=== PATIENT | female | born 1990 | race American Indian/Alaskan Native ===

== ENCOUNTER 2017-02-24 04:50 | Emergency (ER) | payer OTHER ==
[2017-02-24 06:04] LABS: Basophils % (Auto) 0.5 % (0.0-1.8); Eosinophils % (Auto) 0.6 % (0.0-4.3); Hematocrit 38.4 % (30.3-42.9); Hemoglobin 12.7 gm/dl (10.1-14.3); Mean Corpuscular HGB Conc 33 % (30-34); Mean Corpuscular Hemoglobin 28 pg (28-32); Mean Corpuscular Volume 86 fl (79-97); Platelet Count 306 K/mm3 (140-440); Red Blood Count 4.47 M/mm3 (3.65-5.03); Red Cell Distribution Width 13.3 % (13.2-15.2)
[2017-02-24 06:22] LABS: Alanine Aminotransferase 14 units/L (7-56); Albumin 3.8 g/dL (3.9-5); Albumin/Globulin Ratio 0.9 %; Alkaline Phosphatase 66 units/L (35-129); Anion Gap 16 mmol/L; BUN/Creatinine Ratio 16; Blood Urea Nitrogen 11 mg/dL (7-17); Calcium 9.1 mg/dL (8.4-10.2); Carbon Dioxide 26 mmol/L (22-30); Chloride 101.3 mmol/L (98-107); Glucose 91 mg/dL (65-100); Lipase 17 units/L (13-60); Potassium 3.8 mmol/L (3.6-5.0); Sodium 139 mmol/L (137-145); Total Protein 8.1 g/dL (6.3-8.2)
--- NOTE | 2017-02-24 10:39 | Emergency Department Report ---
Chief Complaint: Nausea/Vomiting/Diarrhea Stated Complaint: NAUSEA/VOMIATING Time Seen by Provider: 02/24/17 10:34 - HPI History of Present Illness: PT states she has been vomiting x 3 weeks. PT states she thinks this could be related to her hiatal hernia. PT states her job made her come to the ED for evaluation. PT states she was at work and she collapsed on the floor. PT denies loc PT states she was seen in another ED and dx with gastritis and she followed up with GI. PT had EGD and was dx with hernia. PT was given RX for Zofran but no improvement. - ROS Review of Systems: + epigastric pain + n/v - diarrhea - Exam Vital Signs: Vital Signs 02/24/17 04:57 Temperature 98.1 F Pulse Rate 76 Respiratory 18 Rate Blood Pressure 120/75 O2 Sat by Pulse 99 Oximetry Physical Exam: obese female no acute distress abd soft, LUQ mildy ttp MSE screening note: Focused history and physical exam performed. Due to findings the following was ordered: available labs reviewed ED Medical Decision Making - Lab Data Result diagrams: 02/24/17 05:34 02/24/17 05:34 ED Disposition for MSE Condition: Stable Referrals: PRIMARY CARE, [Primary Care Provider] - 3-5 Days
[2017-02-24] MEDS ORDERED: ZOFRAN IV ONE (11:20)
[2017-02-24] MEDS ORDERED: NACL 0.9% 1000 ML 1,000 ML IV ONE (11:20)
--- NOTE | 2017-02-24 11:22 | Emergency Department Report ---
HPI - General Chief Complaint: Nausea/Vomiting/Diarrhea Time Seen by Provider: 02/24/17 10:34 - HPI HPI: This is a 27 year-old female presents to the emergency department with a complaint of chronic nausea and vomiting. Today alone the patient says that she has vomited 3 times and still continues to be nauseated. She denies any significant abdominal pain. She came into the emergency department today because she was at work and got very dizzy and fell to the ground but denies losing consciousness before or after her fall. She denies any headache, neck pain or any other concern for bodily injury. The patient has been dealing with this nausea and vomiting for the past 2 weeks and even had a endoscopy on Thursday with her [employer]. The patient says she was told that she has a hiatal hernia, GERD and a biopsy was done and the results are not back yet regarding those results. She has been on Zofran without much relief. No fever, chest pain, shortness of breath, vaginal bleeding or discharge, dysuria. No recent travel or sick contacts at home. ED Past Medical Hx - Past Medical History Previous Medical History?: Yes Additional medical history: bronchitis,HERNIA. POS - Surgical History Past Surgical History?: Yes Hx Cholecystectomy: Yes - Social History Smoking Status: Never Smoker Substance Use Type: None - Medications Home Medications: Home Medications Medication Instructions Recorded Confirmed Last Taken Type Naproxen Sodium (Nf) [Anaprox DS] 550 mg PO BID PRN #20 tablet 08/29/13 Unknown Rx Ibuprofen [Motrin] 800 mg PO Q8H PRN #40 tablet 03/17/14 Unknown Rx metroNIDAZOLE [Flagyl] 500 mg PO BID #20 tablet 03/17/14 Unknown Rx Metoclopramide [Reglan] 10 mg PO TID PRN #14 tab 02/24/17 Unknown Rx Nitrofurantoin [place]/M-Cryst 100 mg PO Q12HR #14 capsule 02/24/17 Unknown Rx [Macrobid CAP] ED Review of Systems ROS: Stated complaint: NAUSEA/VOMIATING Other details as noted in HPI Comment: All other systems reviewed and negative Constitutional: denies: chills, fever Eyes: denies: eye pain, eye discharge, vision change ENT: denies: ear pain, throat pain Respiratory: denies: cough, shortness of breath, wheezing Cardiovascular: denies: chest pain, palpitations Gastrointestinal: nausea, vomiting Genitourinary: denies: urgency, dysuria, discharge Musculoskeletal: denies: back pain, joint swelling, arthralgia Skin: denies: rash, lesions Neurological: denies: headache, numbness Physical Exam - Physical Exam Vital Signs: Vital Signs 02/24/17 04:57 Temperature 98.1 F Pulse Rate 76 Respiratory 18 Rate Blood Pressure 120/75 O2 Sat by Pulse 99 Oximetry Physical Exam: GENERAL: The patient is well-developed well-nourished. HENT: Normocephalic. Atraumatic. Patient has moist mucous membranes. EYES: Extraocular motions are intact. Pupils equal reactive to light bilaterally. NECK: Supple. Trachea is midline. CHEST/LUNGS: Clear to auscultation. There is no respiratory distress noted. HEART/CARDIOVASCULAR: Regular. There is no tachycardia. There is no gallop rub or murmur. ABDOMEN: Abdomen is soft, nontender. Patient has normal bowel sounds. There is no abdominal distention. Morbidly obese habitus. SKIN: Skin is warm and dry. NEURO: The patient is awake, alert, and oriented. The patient is cooperative. The patient has no focal neurologic deficits. The patient has normal speech. MUSCULOSKELETAL: There is no tenderness or deformity. There is no limitation range of motion. There is no evidence of acute injury. ED Course Vital Signs 02/24/17 04:57 Temperature 98.1 F Pulse Rate 76 Respiratory 18 Rate Blood Pressure 120/75 O2 Sat by Pulse 99 Oximetry ED Medical Decision Making - Lab Data Result diagrams: 02/24/17 05:34 02/24/17 05:34 - Medical Decision Making 27-year-old female presents with some chronic nausea and vomiting over the past few weeks. She has already had a gastroenterology evaluation including a recent EGD. Zofran does not appear to help her but she appeared to get some relief with Reglan. Labs show a mild UTI but no significant systemic dehydration. No signs of infection in the blood or urine and the patient is not . She was feeling improved after IV fluid resuscitation and antibiotics. She will be started on a 1 week course of Macrobid and be given oral Reglan. She has been encouraged to follow up with her primary care doctor in the [facility] [employer]. She will return to the ER with any worsening of her symptoms or any acute distress. - Differential Diagnosis food poisoning, gastroenteritis, gastroparesis, celiac Critical Care Time: No Critical care attestation.: If time is entered above; I have spent that time in minutes in the direct care of this critically ill patient, excluding procedure time. ED Disposition Clinical Impression: Nausea & vomiting Qualifiers: Vomiting type: unspecified Vomiting Intractability: non-intractable Qualified Code(s): R11.2 - Nausea with vomiting, unspecified UTI (urinary tract infection) Qualifiers: Urinary tract infection type: acute cystitis Hematuria presence: without hematuria Qualified Code(s): N30.00 - Acute cystitis without hematuria Disposition: TO HOME OR SELFCARE Is pt being admited?: No Condition: Stable Instructions: Urinary Tract Infection in Women (ED), Acute Nausea and Vomiting (ED) Additional Instructions: These follow-up with your primary care physician and [employer] in the next few day. Increase your oral rehydration. Return to the emergency Department with any worsening of your symptoms or any acute distress. Prescriptions: Metoclopramide [Reglan] 10 mg PO TID PRN #14 tab PRN Reason: Nausea Nitrofurantoin [place]/M-Cryst [Macrobid CAP] 100 mg PO Q12HR #14 capsule Referrals: PRIMARY CARE, [Primary Care Provider] - [facility] Forms: Work/School Release Form(ED) Time of Disposition: 13:22
[2017-02-24 11:47] LABS: Bacteria,Urine 1+ /HPF (Negative); Bilirubin,Urine NEG (Negative); Blood,Urine NEG (Negative); Ketones,Urine NEG (Negative); Leukocyte Esterase,Urine LG (Negative); Mucus,Urine 3+ /HPF; Nitrite,Urine NEG (Negative); Protein,Urine <15 mg/dL mg/dL (Negative); Urobilinogen,Urine < 2.0 mg/dL (<2.0)
[2017-02-24 11:58] VITALS: BP 120/75
[2017-02-24] MEDS ORDERED: ROCEPHIN/NS 1 GM/50 ML 1 GM/50 ML BAG IV ONE (12:04)
[2017-02-24] MEDS ORDERED: REGLAN IV ONE (12:10)
== END 2017-02-24 13:41 | disposition home or self-care (01) ==
LOC: ED 04:50
DX: N39.0 Urinary tract infection, site not specified (principal); Z90.49 Acquired absence of other specified parts of digestive tract
CPT/HCPCS: 36415; 80053; 81001; 83690; 84703; 85025; 96361; 96365; 96375; 99284; J0696; J2405; J2765; J7030